=== PATIENT | male | born 1955 | race Caucasian/White ===

== ENCOUNTER 2017-06-05 17:30 | Emergency (ER) | payer OTHER, MEDICARE ==
[~2017-06-05] VITALS: Ht 188 cm; Wt 86.2 kg
[~2017-06-05 17:30] MED LIST: CEPH500 PO; CRUTCH4 USE; CYCL10 PO; HYDACE10B PO; INDO50 PO; METPRE4DP PO; NAPR500 PO; RXCYCL10 PO
[2017-06-05] MEDS ORDERED: CYCL10 PO (19:26)
== END 2017-06-05 19:42 | disposition home or self-care (01) ==
LOC: ER 17:30
DX: M54.5 Low back pain (principal); V43.62XA Car passenger injured in collision with other type car in traffic accident, initial encounter; Z88.8 Allergy status to other drugs, medicaments and biological substances
CPT/HCPCS: 96372; 99283; J1885

== ENCOUNTER 2017-06-22 11:09 | Emergency (ER) | payer OTHER, MEDICARE ==
[~2017-06-22] VITALS: Ht 188 cm; Wt 86.2 kg
[2017-06-22] MEDS ORDERED: CYCL10 PO (11:54)
== END 2017-06-22 12:00 | disposition home or self-care (01) ==
LOC: ER 11:09
DX: M54.5 Low back pain (principal); Z88.8 Allergy status to other drugs, medicaments and biological substances; Z79.899 Other long term (current) drug therapy
CPT/HCPCS: 99283

== ENCOUNTER 2018-09-26 17:48 | Emergency (ER) | payer MEDICARE, OTHER ==
[~2018-09-26] VITALS: Ht 188 cm; Wt 86.2 kg
[2018-09-26] MEDS ORDERED: TERB250 PO (18:12)
== END 2018-09-26 18:50 | disposition home or self-care (01) ==
LOC: ER 17:48
DX: S91.311A Laceration without foreign body, right foot, initial encounter (principal); B35.1 Tinea unguium; G89.29 Other chronic pain; X58.XXXA Exposure to other specified factors, initial encounter
CPT/HCPCS: 12001; 99283-25

== ENCOUNTER 2018-10-18 19:35 | Emergency (ER) | payer MEDICARE, OTHER ==
[~2018-10-18] VITALS: Ht 188 cm; Wt 86.2 kg
[~2018-10-18 19:35] MED LIST changes: +TERB250 PO
== END 2018-10-18 20:29 | disposition home or self-care (01) ==
LOC: ER 19:35
DX: L84 Corns and callosities (principal); M54.2 Cervicalgia; M54.9 Dorsalgia, unspecified; Z79.899 Other long term (current) drug therapy
CPT/HCPCS: 99283

== ENCOUNTER 2019-09-15 08:45 | Emergency (ER) | payer MEDICARE, OTHER ==
[~2019-09-15] VITALS: Ht 188 cm; Wt 90.7 kg
[2019-09-15] MEDS ORDERED: Ocuflox5 ML RIGHTEYE (10:39)
[2019-09-17] MEDS ORDERED: POLYTRIM EYE DR10 M1 BOTHEYES (14:00)
== END 2019-09-15 10:59 | disposition home or self-care (01) ==
LOC: ER 08:45
DX: H10.021 Other mucopurulent conjunctivitis, right eye (principal)
CPT/HCPCS: 99282

== ENCOUNTER 2020-10-20 17:41 | Emergency (ER) | payer MEDICARE, OTHER ==
[~2020-10-20] VITALS: Ht 188 cm; Wt 83.9 kg
[~2020-10-20 17:41] MED LIST changes: +Ocuflox5 ML RIGHTEYE; +POLYTRIM EYE DR10 M1 BOTHEYES
[2020-10-20 18:23] LABS: BASOPHILS ABSOLUTE AUTO 0.02 K/mm3 (0.00-0.23); BASOPHILS PERCENT AUTO 0 % (0-2); EOSINOPHILS PERCENT AUTO 0 % (0-6); Hematocrit 50.9 % (37.0-53.0); Hemoglobin 16.7 g/dL (13.5-17.5); IMMATURE GRAN ABSOLUTE AUTO 0.02 K/mm3 (0.00-0.10); IMMATURE GRAN PERCENT AUTO 0 % (0-1); LYMPHOCYTES ABSOLUTE AUTO 1.12 K/mm3 (0.84-5.20); LYMPHOCYTES PERCENT AUTO 20 % (21-46); MONOCYTES ABSOLUTE AUTO 0.31 K/mm3 (0.16-1.47); MONOCYTES PERCENT AUTO 6 % (4-13); Mean Corpuscular HGB Conc 32.8 g/dL (31.5-36.5); Mean Corpuscular Volume 88 fL (80-100); NEUTROPHILS ABSOLUTE AUTO 4.02 K/mm3 (1.96-9.15); NEUTROPHILS PERCENT AUTO 73 % (41-73); Platelet Count 138 K/mm3 (150-400); RDW Coefficient Variation 13.2 % (11.7-14.2); RDW Standard Deviation 42.5 fL (35.1-46.3); Red Blood Cell Count 5.76 M/mm3 (4.30-5.90); White Blood Cell Count 5.49 K/mm3 (4.00-11.30)
[2020-10-20 18:35] LABS: Mean Platelet Volume 13.3 fL (9.1-12.4)
[2020-10-20 18:40] LABS: Alanine Aminotransfer (ALT/SGP 41 U/L (12-78); Albumin, Blood 3.3 g/dL (3.4-5.0); Albumin/Globulin Ratio 0.8 (0.8-1.8); Alk Phos 74 U/L (50-136); Anion Gap 8 mmol/L (6-16); Aspartate Aminotrans (AST/SGOT 40 U/L (12-37); Bilirubin, Total 0.8 mg/dL (0.1-1.0); Blood Urea Nitrogen 15 mg/dL (8-24); Bun/Creatinine Ratio 15.5 (12.0-20.0); CO2, Blood 27 mmol/L (21-32); Calcium, Blood 8.8 mg/dL (8.5-10.1); Chloride, Blood 98 mmol/L (98-108); Creatinine, Blood 0.97 mg/dL (0.60-1.20); Globulin, Blood 4.3 g/dL (2.2-4.0); Glomerular Filtration Rate >60 (60-); Glucose, Blood 101 mg/dL (70-99); Potassium, Blood 3.9 mmol/L (3.5-5.5); Sodium, Blood 133 mmol/L (136-145); Total Protein, Blood 7.6 g/dL (6.4-8.2)
[2020-10-20 20:28] LABS: SARS-Cov-2 (COVID-19) PCR, MMC POSITIVE (NEGATIVE)
== END 2020-10-20 22:58 | disposition home or self-care (01) ==
LOC: ER 17:41
PROVIDERS: Physician Assistant
DX: U07.1 COVID-19 (principal)
CPT/HCPCS: 71045; 80053; 84145; 85025; 93005; 93010; 99285-25; U0004